=== PATIENT | male | born 1970 | race Caucasian/White ===

== ENCOUNTER 2018-11-18 12:02 | Day surgery (SDC) | payer BC, MEDICAID ==
[2018-11-18] MEDS ORDERED: PROPOFOL 40 ML (14:38)
== END 2018-11-18 16:47 | disposition home or self-care (01) ==
LOC: GIL 12:02
DX: K57.30 Diverticulosis of large intestine without perforation or abscess without bleeding (principal)
CPT/HCPCS: 45380; 88305